=== PATIENT | female | born 1970 | race Caucasian/White ===

== ENCOUNTER → 2017-04-22 | Day surgery (SDC) | payer OTHER ==
[~2017-04-22] MED LIST: CYMBALTA30 MG PO; ELLURA PO; FENTANYL CITRATE/PF 100MCG/2 ML INJ ONE; HUMIRA40 MG/0.8 INJ; HYOSCYAMINE SULFATE 0.5 MG/ML AMP ONE; IODINE PO; KETAMINE HCL INJ 50 MG/ML 10 ML VIAL ONE; LIDOCAINE HCL 2% LOCAL INJ 5 ML SDV VIAL INJ ONE; METFORMIN HCL500 MG PO; MIDAZOLAM HCL 2 MG/2 ML VIAL ONE; NP THYROID60 MG PO; OMEGA 3 1,0001 EACH PO; PROGESTERONE100 MG PO; PROPOFOL IV EMULSION 10 MG/ML 50 ML VIAL ONE; PROPRANOLOL HCL80 MG PO; ROBAXIN PO; SPIRONOLACTONE25 MG PO; VITAMIN A; VITAMIN A10000 UNIT PO; VITAMIN D35000 UNI1 PO; VITAMIN K PO; ZETIA10 MG PO
[2017-04-22 10:33] LABS: WBC,FECAL (FECAL LACTOFERRIN) NEGATIVE (NEGATIVE)
[2017-04-22 11:58] LABS: C DIFFICILE TOXIN A&B AMP PROB NEGATIVE (NEGATIVE)
--- NOTE | 2017-04-22 18:50 | Operative Report ---
DATE OF PROCEDURE: April 22, 2017 REFERRING PHYSICIAN: Dr. Roseanne Rand. PROCEDURE PERFORMED: Esophagogastroduodenoscopy with esophageal dilatation with biopsies and a colonoscopy with polypectomy and biopsies INDICATIONS FOR ESOPHAGOGASTRODUODENOSCOPY: Dysphagia. INDICATIONS FOR COLONOSCOPY: Chronic intermittent diarrhea. MEDICATION: Patient was done under MAC. Please see anesthesiologist's note. PROCEDURE: With patient in left lateral decubitus position, the flexible fiberoptic Olympus gastroscope was introduced into the esophagus under direct visualization without any difficulty. There was some minimal longitudinal furrows noted in the esophagus suspicious for eosinophilic esophagitis, but no concentric rings. Biopsies were obtained to rule out EOE and there was a mild stricture noted at the GE junction that was dilated to size 50-Nigerien Quintero. The scope was then advanced with ease into the stomach. Mucosa overlying the antrum and the body revealed some patchy erythema and low-grade to moderate edema and biopsies were obtained and sent to stain for H. pylori. Pylorus appeared to be of normal contour and shape. Was intubated with ease and the scope was advanced all the way to the 2nd portion of the duodenum. Biopsies were obtained from the proximal 2nd portion to rule out sprue considering patient's history of diarrhea. The mucosa overlying the duodenal bulb appeared to be within normal limits. The scope was then withdrawn back into the stomach and retroflexed and mucosa overlying the fundus and the cardia appeared to be within normal limits. The scope was then straightened out. Stomach was decompressed. Scope was subsequently withdrawn. Patient tolerated the procedure well. IMPRESSION: 1. Rule out eosinophilic esophagitis. 2. Esophageal stricture mild. GE junction dilated to a size 50-Nigerien Quintero. 3. Gastritis, biopsied. Biopsy sent to stain for H. pylori. 4. Rule out sprue. PLAN: Follow up histology. Initiate Protonix 40 mg 1 p.o. q.a.m. a.c. PROCEDURE: Patient was then turned around and after adequate lubrication of the anal canal a flexible fiberoptic Olympus colonoscope was inserted into the rectum with ease and it was advanced all the way to the cecum. Mucosa overlying the cecum appeared to be within normal limits. The ileocecal was intubated, and the scope was advanced into the terminal ileum. Biopsies were obtained from the terminal ileum. The scope was then withdrawn back into the colon. It was then withdrawn slowly. Mucosa overlying the ascending and transverse appeared to be within normal limits. The mucosa overlying the left colon revealed some patchy mild inflammatory changes and random biopsies were obtained. A minute polyp was noted in the sigmoid that was hot biopsied. The scope was then retroflexed into the distal rectum and the area around the dentate line was inspected carefully and there was a focal nodularity noted just above the dentate line and that was hot biopsied. The scope was then straightened out and it was withdrawn. Patient tolerated the procedure well. Adequate stool specimen was secured and sent for the appropriate studies. IMPRESSION 1. Rule out patchy mild left-sided colitis. 2. Sigmoid colon polyp, hot biopsied. 3. Focal nodularity in distal rectum, hot biopsied. 4. Internal hemorrhoids, none actively bleeding. PLAN: Follow up histology. Follow up stool studies. Initiate Bentyl 10 mg 1 p.o. t.i.d.. VSL#3 one p.o. daily. Patient might benefit from a followup colonoscopy in 3-5 years. Job#: [id number] cc:ROSEANNE RAND DO
== END | disposition home or self-care (01) ==
LOC: OR 06:05
PROVIDERS: ATTEND Internal Medicine Gastroenterology
DX: K22.2 Esophageal obstruction (principal); K63.5 Polyp of colon; K29.70 Gastritis, unspecified, without bleeding; K25.9 Gastric ulcer, unspecified as acute or chronic, without hemorrhage or perforation; K22.8 Other specified diseases of esophagus; K58.9 Irritable bowel syndrome, unspecified; K62.89 Other specified diseases of anus and rectum; R19.7 Diarrhea, unspecified; K59.00 Constipation, unspecified; K64.8 Other hemorrhoids; K62.5 Hemorrhage of anus and rectum; J45.909 Unspecified asthma, uncomplicated; I10 Essential (primary) hypertension; E11.9 Type 2 diabetes mellitus without complications; E03.9 Hypothyroidism, unspecified; N20.0 Calculus of kidney; M06.9 Rheumatoid arthritis, unspecified; F41.9 Anxiety disorder, unspecified; Z01.810 Encounter for preprocedural cardiovascular examination; Z68.35 Body mass index [BMI] 35.0-35.9, adult
CPT/HCPCS: 36415; 43239; 43450; 45384; 82948; 83630; 83993; 87045; 87177; 87328; 87493; 93005; J1980; J2001; J2250; 45380

== ENCOUNTER → 2019-03-08 | Outpatient (CLI) | payer OTHER ==
[~2019-03-08] MED LIST changes: +DIATRIZOATE MEGL/DIATRIZOA SOD 30 ML BTL PO ONE; -FENTANYL CITRATE/PF 100MCG/2 ML INJ ONE; -HYOSCYAMINE SULFATE 0.5 MG/ML AMP ONE; +IOPAMIDOL 370 MG/ML 200 ML INFUS..BTL INJ ONE; -KETAMINE HCL INJ 50 MG/ML 10 ML VIAL ONE; -LIDOCAINE HCL 2% LOCAL INJ 5 ML SDV VIAL INJ ONE; -MIDAZOLAM HCL 2 MG/2 ML VIAL ONE; -PROPOFOL IV EMULSION 10 MG/ML 50 ML VIAL ONE; +SODIUM CHLORIDE 0.9% 50ML 50 ML ONE
[2019-03-08 14:32] LABS: BLOOD UREA NITROGEN 15 mg/dL (7-26); BUN/CREATININE RATIO 16 (6-25); CREATININE, SERUM 0.94 mg/dL (0.57-1.11); EST GLOMERULAR FILTRATION RATE > 60 ML/MIN (60-)
--- NOTE | 2019-03-08 17:24 | Diagnostic Imaging Report ---
EXAM: CT Abdomen and Pelvis WITH intravenous contrast INDICATION: Abdominal pain COMPARISON: None. TECHNIQUE: Abdomen and pelvis were scanned utilizing a multidetector helical scanner from the lung base to the pubic symphysis after administration of IV contrast. Coronal and sagittal reformations were obtained. Routine protocol was performed. Scan was performed during portal venous phase. IV CONTRAST: 100mL of Isovue 370 ORAL CONTRAST: Gastrografin RADIATION DOSE: Total DLP: 755.9 mGy*cm Dose modulation, iterative reconstruction, and/or weight based adjustment of the mA/kV was utilized to reduce the radiation dose to as low as reasonably achievable. FINDINGS: LOWER THORAX: Mild bibasilar dependent subsegmental atelectasis. No focal consolidation. Bilateral saline breast implants. HEPATOBILIARY: Diffuse hepatic steatosis. No focal liver lesion. No biliary ductal dilation. Normal gallbladder. SPLEEN: No splenomegaly. PANCREAS: No focal masses or ductal dilatation. ADRENALS: No adrenal nodules. KIDNEYS/URETERS: No hydronephrosis, stones, or solid mass lesions. PELVIC ORGANS/BLADDER: Status post hysterectomy. PERITONEUM / RETROPERITONEUM: No free air or fluid. LYMPH NODES: No lymphadenopathy. VESSELS: Unremarkable. GI TRACT: No abnormal bowel thickening. No bowel obstruction. Normal appendix. BONES AND SOFT TISSUES: Unremarkable. IMPRESSION: No acute findings in the abdomen or pelvis. Diffuse hepatic steatosis. Signed by: Sekou Perez MD on 03/08/2019 5:20 PM
== END ==
LOC: CT 13:50
PROVIDERS: ATTEND Internal Medicine Gastroenterology
DX: R10.30 Lower abdominal pain, unspecified (principal); K62.5 Hemorrhage of anus and rectum
CPT/HCPCS: 36415; 74177; 82565; 84520; Q9967

== ENCOUNTER → 2020-06-19 | Day surgery (SDC) | payer OTHER ==
[2020-06-16 15:15] LABS: BASOPHILS # (AUTO) 0.1 (0.0-0.1); BASOPHILS % 0.7 % (0.0-1.0); EOSINOPHILS # (AUTO) 0.3 (0.0-0.4); EOSINOPHILS % 3.2 % (0.0-6.0); HEMATOCRIT 40.9 % (34.2-44.1); HEMOGLOBIN 13.8 g/dL (12.0-16.0); LYMPHOCYTES # (AUTO) 3.5 (1.0-3.2); LYMPHOCYTES % 36.1 % (18.0-39.1); MEAN CORPUSCULAR HEMOGLOBIN 29.9 pg (28-32); MEAN CORPUSCULAR HGB CONC 33.7 g/dL (31-35); MEAN CORPUSCULAR VOLUME 88.5 fL (81-99); MONOCYTES # (AUTO) 0.6 (0.2-0.8); MONOCYTES % 5.7 % (4.4-11.3); NEUTROPHILS # (AUTO) 5.2 (2.1-6.9); PLATELET COUNT 383 x10e3/uL (140-360); RED BLOOD COUNT 4.62 x10e6/uL (3.6-5.1)
[~2020-06-19] MED LIST changes: +ARMOUR THYROID60 MG PO; +BUSPIRONE HCL5 MG PO; -DIATRIZOATE MEGL/DIATRIZOA SOD 30 ML BTL PO ONE; +DIOVAN80 MG PO; +HYOSCYAMINE SULFATE 0.5 MG/ML INJ ONE; -IOPAMIDOL 370 MG/ML 200 ML INFUS..BTL INJ ONE; +ORENCIA87.5 MG/0. IV; +OXYBUTYNIN CHLOR5 MG PO; +PANTOPRAZOLE SO40 MG PO; +PROAIR DIGIHAL90 MCG INH; +PROPOFOL IV EMULSION 10 MG/ML 20 ML VIAL ONE; +REPATHA SY140 MG/1 M SC; -SODIUM CHLORIDE 0.9% 50ML 50 ML ONE; +TRULICITY1.5 MG/0.5 SC; +VASCEPA1 GM PO
[2020-06-19 14:32] VITALS: BP 119/59
== END | disposition home or self-care (01) ==
LOC: OR 09:57
PROVIDERS: ATTEND Internal Medicine Gastroenterology
DX: K20.90 Esophagitis, unspecified without bleeding (principal); Z86.010 Personal history of colon polyps; K29.70 Gastritis, unspecified, without bleeding; K21.9 Gastro-esophageal reflux disease without esophagitis; K59.00 Constipation, unspecified; K63.89 Other specified diseases of intestine; K64.8 Other hemorrhoids; E11.9 Type 2 diabetes mellitus without complications; I10 Essential (primary) hypertension; J45.909 Unspecified asthma, uncomplicated; E78.00 Pure hypercholesterolemia, unspecified; R00.0 Tachycardia, unspecified; E03.9 Hypothyroidism, unspecified; F41.9 Anxiety disorder, unspecified; Z01.812 Encounter for preprocedural laboratory examination; Z20.822 Contact with and (suspected) exposure to COVID-19; Z79.84 Long term (current) use of oral hypoglycemic drugs; Z68.32 Body mass index [BMI] 32.0-32.9, adult
CPT/HCPCS: 36415 ×2; 43239; 43450; 45380; 82948; 85025; J1980; J2704; U0002; 45378

== ENCOUNTER → 2022-07-20 | Outpatient (CLI) | payer OTHER ==
[~2022-07-20] MED LIST changes: -HYOSCYAMINE SULFATE 0.5 MG/ML INJ ONE; +IOPAMIDOL 370 MG/ML 100 ML INFUS..BTL INJ ONE; -PROPOFOL IV EMULSION 10 MG/ML 20 ML VIAL ONE
[2022-07-20 10:57] LABS: CREATININE, SERUM 0.89 mg/dL (0.57-1.11)
== END ==
LOC: CT 09:55
PROVIDERS: ATTEND Nurse Practitioner
DX: R10.10 Upper abdominal pain, unspecified (principal); R19.5 Other fecal abnormalities
CPT/HCPCS: 36415; 74177; 82565; 84520; Q9967